=== PATIENT | male | born 1965 | race African-American/Black ===

== ENCOUNTER 2024-05-13 08:09 | Emergency (ER) | payer OTHER ==
[2024-05-13] MEDS ORDERED: Ibuprofen 200 MG TAB ONE (09:45)
== END 2024-05-13 09:45 | disposition home or self-care (01) ==
LOC: CSHERS 08:09
DX: S80.211A Abrasion, right knee, initial encounter (principal); M17.11 Unilateral primary osteoarthritis, right knee; I10 Essential (primary) hypertension; W19.XXXA Unspecified fall, initial encounter